=== PATIENT | female | born 1995 | race Two or more races ===

== ENCOUNTER 2018-11-17 23:15 | Emergency (ER) | payer MEDICAID ==
[~2018-11-17] VITALS: Ht 162.6 cm; Wt 93.3 kg
[2018-11-17 23:22] VITALS: BP 106/71
--- NOTE | 2018-11-17 23:46 | NUR ---
PT REPORTS INTERMITTENT LLQ PAIN X SIX DAYS, RADIATING TO L FLANK X TODAY. DENIES FEVER/N/V/URINARY SYMPTOMS. +L CVA TENDERNESS PT AMBULATED STEADILY TO BATHROOM TO PROVIDE UA/ UA COLLECTED AND SENT.
[2018-11-17] MEDS ORDERED: KETOROLAC 30 MG/1 ML ONE (23:55)
[2018-11-17 23:59] LABS: MICROSCOPIC AUTO
[2018-11-18] MEDS: KETOROLAC 30 MG/1 ML IM ONE ×2 (00:02→00:40)
[2018-11-18 00:12] LABS: CULTURE INDICATED? YES
--- NOTE | 2018-11-18 00:12 | NUR ---
HOLDING MEDICATION UNTIL HCG RESULTS PER ERP
[2018-11-18 00:14] LABS: BASOPHILS # (AUTO) 0.03 x10^3/uL (0-0.1); BASOPHILS % (AUTO) 0 % (0-1); EOSINOPHILS # (AUTO) 0.13 x10^3/uL (0-0.4); EOSINOPHILS % (AUTO) 2 % (1-7); LYMPHOCYTES # (AUTO) 2.55 x10^3/uL (1-3.4); LYMPHOCYTES % (AUTO) 31 % (22-44); MD NO; MEAN CORPUSCULAR HEMOGLOBIN 25.8 pg (27.0-34.8); MEAN CORPUSCULAR HGB CONC 32.2 g/dL (32.4-35.8); MEAN CORPUSCULAR VOLUME 80.4 fL (80-100); MEAN PLATELET VOLUME 7.6 fL (7.4-10.4); MONOCYTES % (AUTO) 6 % (2-9); NEUTROPHILS # (AUTO) 4.91 x10^3/uL (1.8-6.8); NEUTROPHILS % (AUTO) 61 % (42-75); PLATELET COUNT 358 x10^3/uL (130-400); RED BLOOD COUNT 4.35 x10^6/uL (3.82-5.3); RED CELL DISTRIBUTION WIDTH 17.5 % (9.6-15.2)
[2018-11-18 00:20] LABS: ALANINE AMINOTRANSFERASE 19 U/L (12-78); ALBUMIN 3.7 g/dL (3.4-5.0); ANION GAP 6 mmol/L (5-15); CALCIUM 8.4 mg/dL (8.5-10.1); CHLORIDE 113 mmol/L (98-107); CREATININE 0.51 mg/dL (0.55-1.02)
[2018-11-18 00:25] LABS: ALKALINE PHOSPHATASE 97 U/L (45-117); BILIRUBIN,TOTAL 0.3 mg/dL (0.2-1.0); TOTAL PROTEIN 7.3 g/dL (6.4-8.2)
--- NOTE | 2018-11-18 00:40 | NUR ---
NEG HCG. PT MEDICATED PER EMAR FOR PAIN
[2018-11-18] MEDS ORDERED: CEFDINIR 250 MG/5 ML, ORAL SUSP PO ONE (01:00)
[2018-11-18] MEDS ORDERED: CEFDINIR 300 MG CAPSULE ONE (01:09)
--- NOTE | 2018-11-18 01:13 | NUR ---
PT MEDICATED PER EMAR W/ ABX
--- NOTE | 2018-11-18 01:22 | NUR ---
NO S/S OF ABX RXN NOTED. DC EDUCATION PROVIDED, PT DEMONSTRATES UNDERSTANDING. PT AMBUALTED STEADILY TO DC WITH RN AND SO
[2018-11-18] MEDS ORDERED: CEFDINIR 300 MG CAPSULE PO ONE (01:30)
== END 2018-11-18 01:23 | disposition home or self-care (01) ==
LOC: ED 11-18 00:41
DX: N39.0 Urinary tract infection, site not specified (principal)
CPT/HCPCS: 36415; 80053; 81001; 84702; 85025; 87086; 96372; 99283; J1885

== ENCOUNTER 2018-11-21 08:47 | Emergency (ER) | payer MEDICAID ==
[~2018-11-21] VITALS: Ht 162.6 cm; Wt 95.5 kg
[2018-11-21 08:50] VITALS: BP 124/65
[2018-11-21] MEDS ORDERED: IBUPROFEN 600 MG TABLET ONE (09:15)
[2018-11-21] MEDS ORDERED: IBUPROFEN 600 MG TABLET PO ONE (09:30)
== END 2018-11-21 10:16 | disposition home or self-care (01) ==
LOC: ED 10:00
DX: S83.411A Sprain of medial collateral ligament of right knee, initial encounter (principal); M25.512 Pain in left shoulder; K21.9 Gastro-esophageal reflux disease without esophagitis; W18.30XA Fall on same level, unspecified, initial encounter; Y93.89 Activity, other specified; Y92.39 Other specified sports and athletic area as the place of occurrence of the external cause; Y99.8 Other external cause status
CPT/HCPCS: 99283

== ENCOUNTER 2019-07-10 19:34 | Emergency (ER) | payer MEDICAID ==
[~2019-07-10] VITALS: Ht 160 cm; Wt 95.2 kg
--- NOTE | 2019-07-10 19:50 | NUR ---
Patient states she has a burning sensation in the epigastric area which radiates into her throat x1 week. She has had this pain before which she was seen for and was diagnosed with heart burn. This feels like the same pain but worse. Laying down and eating makes it worse. Patient has been nauseous and states she threw up yesterday morning. Denies fever or chills. Patient has not taken anything for the pain today. Patient is in no apparent distress. Respirations even and unlabored.
[2019-07-10] MEDS ORDERED: MAALOX/HYOSCYAMINE/LIDOCAINE 45 ML BTL ONE (19:58)
[2019-07-10] MEDS ORDERED: ONDANSETRON ODT 4 MG ONE (19:58)
[2019-07-10 20:07] LABS: BASOPHILS # (AUTO) 0.06 x10^3/uL (0-0.1); BASOPHILS % (AUTO) 1 % (0-1); EOSINOPHILS # (AUTO) 0.16 x10^3/uL (0-0.4); EOSINOPHILS % (AUTO) 2 % (1-7); LYMPHOCYTES % (AUTO) 29 % (22-44); MD NO; MEAN CORPUSCULAR HEMOGLOBIN 25.2 pg (27.0-34.8); MEAN CORPUSCULAR VOLUME 78.9 fL (80-100); MEAN PLATELET VOLUME 7.6 fL (7.4-10.4); MONOCYTES # (AUTO) 0.58 x10^3/uL (0.2-0.8); MONOCYTES % (AUTO) 8 % (2-9); NEUTROPHILS # (AUTO) 4.69 x10^3/uL (1.8-6.8); NEUTROPHILS % (AUTO) 61 % (42-75); PLATELET COUNT 303 x10^3/uL (130-400); RED BLOOD COUNT 4.12 x10^6/uL (3.82-5.3); RED CELL DISTRIBUTION WIDTH 16.6 % (9.6-15.2)
[2019-07-10 20:18] LABS: ALANINE AMINOTRANSFERASE 23 U/L (12-78); ALBUMIN 3.5 g/dL (3.4-5.0); ANION GAP 9 mmol/L (5-15); CALCIUM 8.8 mg/dL (8.5-10.1); CHLORIDE 111 mmol/L (98-107)
[2019-07-10 20:23] LABS: ALKALINE PHOSPHATASE 91 U/L (45-117); BILIRUBIN,TOTAL 0.3 mg/dL (0.2-1.0); TOTAL PROTEIN 7.4 g/dL (6.4-8.2)
[2019-07-10] MEDS ORDERED: MAALOX/HYOSCYAMINE/LIDOCAINE 45 ML BTL PO ONE (21:00)
[2019-07-10] MEDS ORDERED: ONDANSETRON ODT 4 MG PO ONE (21:00)
[2019-07-10 22:20] VITALS: BP 109/53
== END 2019-07-10 22:23 | disposition home or self-care (01) ==
LOC: ED 22:05
DX: K80.20 Calculus of gallbladder without cholecystitis without obstruction (principal)
CPT/HCPCS: 36415; 76700; 80053; 83690; 84702; 85025; 99284; Q0162; 84703

== ENCOUNTER 2019-08-06 22:41 | Emergency (ER) | payer MEDICAID ==
[~2019-08-06] VITALS: Ht 162.6 cm; Wt 98.1 kg
--- NOTE | 2019-08-06 22:58 | NUR ---
URINE COLLECTED AND SENT, PT AWARE THAT HAVE SPOKE WITH MD AND SOME LABS HAVE BEEN ORDERED. PT AND UNDERSTANDING OF WAIT
[2019-08-06 23:10] LABS: MICROSCOPIC AUTO
[2019-08-06 23:21] LABS: BASOPHILS # (AUTO) 0.01 x10^3/uL (0-0.1); BASOPHILS % (AUTO) 0 % (0-1); EOSINOPHILS % (AUTO) 1 % (1-7); LYMPHOCYTES # (AUTO) 2.11 x10^3/uL (1-3.4); LYMPHOCYTES % (AUTO) 25 % (22-44); MD NO; MEAN CORPUSCULAR HEMOGLOBIN 25.1 pg (27.0-34.8); MEAN CORPUSCULAR HGB CONC 32.1 g/dL (32.4-35.8); MEAN CORPUSCULAR VOLUME 78.1 fL (80-100); MEAN PLATELET VOLUME 7.7 fL (7.4-10.4); MONOCYTES # (AUTO) 0.74 x10^3/uL (0.2-0.8); MONOCYTES % (AUTO) 9 % (2-9); NEUTROPHILS # (AUTO) 5.53 x10^3/uL (1.8-6.8); NEUTROPHILS % (AUTO) 65 % (42-75); PLATELET COUNT 297 x10^3/uL (130-400); RED BLOOD COUNT 4.21 x10^6/uL (3.82-5.3); RED CELL DISTRIBUTION WIDTH 17.5 % (9.6-15.2)
[2019-08-06 23:37] LABS: CULTURE INDICATED? YES
--- NOTE | 2019-08-06 23:50 | NUR ---
PT C/O BAD CRAMPING 3-4 DAYS. LMP 11, 7 WEEKS GESTATION. HX HIGH RISK PREG, BABY BROUGHT TO TERM. CONNECTED TO MONITORING. CALL LIGHT IN REACH.
--- NOTE | 2019-08-07 00:10 | NUR ---
REPORT FROM OTIS COLLINS ASSUMING CARE AT THIS TIME
--- NOTE | 2019-08-07 00:29 | NUR ---
PT IN US CURRENTLY
--- NOTE | 2019-08-07 01:04 | NUR ---
THIS RN INTO ROOM AFER LENGTHY CONVERSATIONS WITH BLOOD BANK ABOUT PTS HX AND CHIEF COMPLAINT. POC DISCUSSED. PT STATES SHE LAST RECEIVED RHOGAM APPROX 3 YEARS AGO. PT UNSURE OF DATE. BLOOD BANK INFORMED OF THIS. PER MD PT MAY RECEIVE RHOGAM DEPENDING ON ULTRASOUND READ. LAB WAS CALLED AND INFORMED OF THIS. LAB REQUESTS A CALL BACK ONCE ULTRASOUND READ IS BACK AND MD MAKES DECISION ON RHOGAM OR NOT. ED LEGAL INVESTIGATOR TODD AND ER AWARE OF THIS PLAN.
--- NOTE | 2019-08-07 01:17 | NUR ---
SPOKE WITH BLOOD BANK AND INFORMED THEM PT WILL BE RECEIVING RHOGAM PER DR CHARLES. THEY REQUEST WE DOCUMENT THE BLEEDING IN THE NURSING PHYSICAL ASSESSMENT. PER ER SENIOR TERADATA DEVELOPER THIS IS NOT PART OF THE NURSING PHYSICAL ASSESSMENT WE CANNOT ASSESS THIS. THE PRESENCE OF BLEEDING CAN BE FOUND IN THE ULTRASOUND READ.
[2019-08-07 01:25] VITALS: BP 91/37
--- NOTE | 2019-08-07 01:26 | NUR ---
PT BACK TO ROOM FROM US, CONNECTED TO MONITORING, VSS, NADN.
--- NOTE | 2019-08-07 02:15 | NUR ---
RHOGAM GIVEN, VERIFIED WITH STEPHY COLLINS, CONSENT SIGNED PRIOR TO ADMIN
== END 2019-08-07 02:42 | disposition home or self-care (01) ==
LOC: ED 08-07 01:12
DX: O23.11 Infections of bladder in pregnancy, first trimester (principal); O20.0 Threatened abortion; Z3A.01 Less than 8 weeks gestation of pregnancy
CPT/HCPCS: 36415; 76801; 81001; 84702; 85025; 86850; 86900; 87086; 87106; 96372; 99284; J2790

== ENCOUNTER 2019-10-11 09:40 | Emergency (ER) | payer MEDICAID ==
[~2019-10-11] VITALS: Ht 160 cm; Wt 100.2 kg
[2019-10-11 10:43] LABS: ALBUMIN 2.9 g/dL (3.4-5.0); ANION GAP 7 mmol/L (5-15); CALCIUM 8.5 mg/dL (8.5-10.1); CHLORIDE 109 mmol/L (98-107); CREATININE 0.47 mg/dL (0.55-1.02)
[2019-10-11 10:49] LABS: BASOPHILS # (AUTO) 0.01 x10^3/uL (0-0.1); BASOPHILS % (AUTO) 0 % (0-1); EOSINOPHILS # (AUTO) 0.13 x10^3/uL (0-0.4); EOSINOPHILS % (AUTO) 2 % (1-7); LYMPHOCYTES # (AUTO) 1.44 x10^3/uL (1-3.4); LYMPHOCYTES % (AUTO) 21 % (22-44); MD NO; MEAN CORPUSCULAR HGB CONC 34.1 g/dL (32.4-35.8); MEAN CORPUSCULAR VOLUME 87.9 fL (80-100); MEAN PLATELET VOLUME 7.3 fL (7.4-10.4); MONOCYTES # (AUTO) 0.48 x10^3/uL (0.2-0.8); MONOCYTES % (AUTO) 7 % (2-9); NEUTROPHILS # (AUTO) 4.73 x10^3/uL (1.8-6.8); NEUTROPHILS % (AUTO) 70 % (42-75); PLATELET COUNT 317 x10^3/uL (130-400); RED BLOOD COUNT 4.17 x10^6/uL (3.82-5.3); RED CELL DISTRIBUTION WIDTH 19.8 % (9.6-15.2)
[2019-10-11] MEDS ORDERED: METOCLOPRAMIDE 5 MG/ML, 2ML ONE (14:39)
[2019-10-11] MEDS ORDERED: DIPHENHYDRAMINE 50 MG/ML, 1ML ONE (14:39)
--- NOTE | 2019-10-11 14:45 | NUR ---
PT TO RM FROM LOBBY
[2019-10-11 14:56] LABS: CULTURE INDICATED? YES; MICROSCOPIC INDICATED
[2019-10-11] MEDS ORDERED: DIPHENHYDRAMINE 50 MG/ML, 1ML IVPush ONE (15:00)
[2019-10-11] MEDS ORDERED: SODIUM CHLORIDE 0.9% 1,000ML IVBOLUS ONE (15:00)
[2019-10-11] MEDS ORDERED: METOCLOPRAMIDE 5 MG/ML, 2ML IVPush ONE (15:00)
--- NOTE | 2019-10-11 15:01 | NUR ---
PT WITH C/O IGNACIO X3 DAYS, SOME ASSOCIATED NAUSEA. ORDERS RECEIVED. PIV INITIATED, PT MEDICATED PER OCT.
[2019-10-11 15:56] VITALS: BP 100/59
--- NOTE | 2019-10-11 15:57 | NUR ---
TASK RN: Patient/Caregiver given discharge instructions and they have confirmed that they understand the instructions. Patient ambulatory with steady gait. PT RATES PAIN 6/10
== END 2019-10-11 16:04 | disposition home or self-care (01) ==
LOC: ED 10:40
DX: R51 Headache (principal); R11.0 Nausea; R42 Dizziness and giddiness; K21.9 Gastro-esophageal reflux disease without esophagitis
CPT/HCPCS: 36415; 80048; 81001; 82040; 85025; 87086; 96361; 96374; 96375; 99284; J1200; J2765; J7030

== ENCOUNTER 2019-10-24 20:06 | Emergency (ER) | payer MEDICAID ==
[~2019-10-24] VITALS: Ht 160 cm; Wt 102.2 kg
[2019-10-24 20:10] VITALS: BP 122/70
--- NOTE | 2019-10-24 20:29 | NUR ---
MD Velazquez preformed bedside ultrasound, good movement, estimated FHT @ 170
--- NOTE | 2019-10-24 20:42 | NUR ---
Patient/Caregiver given discharge instructions and they have confirmed that they understand the instructions. Patient ambulatory with steady gait.
== END 2019-10-24 20:44 | disposition home or self-care (01) ==
LOC: ED 20:25
DX: O36.8120 Decreased fetal movements, second trimester, not applicable or unspecified (principal); Z3A.18 18 weeks gestation of pregnancy
CPT/HCPCS: 99284

== ENCOUNTER 2020-07-29 13:33 | Emergency (ER) | payer MEDICAID ==
[~2020-07-29] VITALS: Ht 160 cm; Wt 113.5 kg
[2020-07-29 13:45] VITALS: BP 119/97
--- NOTE | 2020-07-29 13:55 | NUR ---
PROVIDER AT BEDSIDE
--- NOTE | 2020-07-29 14:03 | NUR ---
PT COMES IN C/O LEFT 4TH TOE 02/09 PAIN, SWELLING, REDNESS FOLLOWING "I WAS RUNNING AND I TRIPPED" APPROX 10 DAYS AGO. STATES IT HAS GOTTEN WORSE. NAD. WILL CONTINUE TO MONITOR
--- NOTE | 2020-07-29 14:05 | NUR ---
XRAY AT BEDSIDE
--- NOTE | 2020-07-29 14:51 | NUR ---
DICHARGE INSTRUCTIONS EXPLAINED TO PT. PT VERBALIZED UNDERSTANDING. LEFT 3RD AND 4TH TOE BELKYS TAPED PER PROVIDER REQUEST. PT AMBULATED TO DISCHARGE DESK WITH ALL BELONGINGS AND W/O INCIDENT
== END 2020-07-29 14:52 | disposition home or self-care (01) ==
LOC: ED 14:25
DX: S90.122A Contusion of left lesser toe(s) without damage to nail, initial encounter (principal); K21.9 Gastro-esophageal reflux disease without esophagitis; W22.8XXA Striking against or struck by other objects, initial encounter; Y93.89 Activity, other specified; Y92.098 Other place in other non-institutional residence as the place of occurrence of the external cause; Y99.8 Other external cause status
CPT/HCPCS: 99283

== ENCOUNTER 2020-09-25 17:33 | Emergency (ER) | payer MEDICAID ==
[~2020-09-25] VITALS: Ht 160 cm; Wt 109.9 kg
[2020-09-25] MEDS ORDERED: IBUPROFEN 800 MG TABLET PO ONE (18:00)
[2020-09-25] MEDS ORDERED: ACETAMINOPHEN 500 MG TABLET PO ONE (18:00)
[2020-09-25 18:07] LABS: BASOPHILS % (AUTO) 1 % (0-1); EOSINOPHILS % (AUTO) 1 % (1-7); LYMPHOCYTES % (AUTO) 29 % (22-44); MEAN CORPUSCULAR HEMOGLOBIN 28.4 pg (27.0-34.8); MEAN CORPUSCULAR HGB CONC 33.5 g/dL (32.4-35.8); MONOCYTES % (AUTO) 5 % (2-9); NEUTROPHILS % (AUTO) 65 % (42-75); PLATELET COUNT 352 x10^3/uL (130-400)
[2020-09-25 18:09] LABS: MD NO
[2020-09-25 18:16] LABS: ALBUMIN 3.5 g/dL (3.4-5.0); ANION GAP 6 mmol/L (5-15); CALCIUM 8.8 mg/dL (8.5-10.1); CHLORIDE 110 mmol/L (98-107); CREATININE 0.57 mg/dL (0.55-1.02)
[2020-09-25] MEDS ORDERED: IBUPROFEN 800 MG TABLET ONE (18:22)
[2020-09-25] MEDS ORDERED: ACETAMINOPHEN 500 MG TABLET ONE (18:22)
--- NOTE | 2020-09-25 18:24 | NUR ---
This RN at bedside to witness transvaginal ultrasound.
--- NOTE | 2020-09-25 18:53 | NUR ---
BEDSIDE REPORT TRANSFER OF CARE AT THIS TIME. URINE PENDING AND US READ PENDING AT THIS TIME.
[2020-09-25 19:01] LABS: HCG UR SG 1.021 (1.003-1.030); MICROSCOPIC NOT IND
[2020-09-25 19:27] VITALS: BP 120/63
--- NOTE | 2020-09-25 19:28 | NUR ---
task rn: Patient given discharge instructions and they have confirmed that they understand the instructions. Patient ambulatory with steady gait. nad, denies additional questions or needs, no personal belongings left in room after dc.
== END 2020-09-25 19:36 | disposition home or self-care (01) ==
LOC: ED 19:00
DX: R10.2 Pelvic and perineal pain (principal); R39.15 Urgency of urination; R10.30 Lower abdominal pain, unspecified; F17.210 Nicotine dependence, cigarettes, uncomplicated; K21.9 Gastro-esophageal reflux disease without esophagitis; F17.290 Nicotine dependence, other tobacco product, uncomplicated
CPT/HCPCS: 36415; 76830; 80048; 81003; 81025; 82040; 85025; 99284; 99406